=== PATIENT | male | born 2000 | race Caucasian/White ===

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

== ENCOUNTER 2024-07-08 14:23 | Inpatient (IN) ==
[2024-07-08 15:27] LABS: ABS Basophils 0.1 10^3/uL (0.0-0.1); ABS Eosinophils 0.1 10^3/uL (0.0-0.5); ABS Lymphocytes 1.9 10^3/uL (1.0-4.8); ABS Monocytes 0.3 10^3/uL (0.0-1.1); ABS Neutrophils 4.8 10^3/uL (1.5-7.6); Eosinophil % 1.9 %; Hematocrit 45.7 % (38-53); Hemoglobin 15.9 g/dL (13.2-16.3); Lymphocyte % 26.6 %; Mean Corpuscular Hemoglobin 32.1 pg (27-33); Mean Corpuscular Hgb Conc 34.7 g/dL (31-36); Mean Corpuscular Volume 92.6 fL (80-97); Mean Platelet Volume 8.5 fL (7.5-11.2); Nucleated Red Blood Cells % 0.1 %/100WBC (0.0-0.8); Platelet Count 250 10^3/uL (150-450); Red Blood Count 4.93 10^6/uL (4.06-5.63); Red Cell Distribution Width 12.7 % (12-17); White Blood Count 7.3 10^3/uL (3.6-10.2)
[2024-07-08 15:51] LABS: Urine Appearance Clear; Urine Benzodiazepine Screen None Detected (None Detect); Urine Bilirubin Negative (Negative); Urine Blood Negative (Negative); Urine Cannabinoids Screen None Detected (None Detect); Urine Color Light-Yellow; Urine Glucose Negative (Negative); Urine Ketones Negative (Negative); Urine Nitrite Negative (Negative); Urine Opiates Screen None Detected (None Detect); Urine Protein Negative (Negative); Urine Specific Gravity 1.016 (1.002-1.030); Urine Urobilinogen Negative (Negative)
[2024-07-08 16:11] LABS: ALT 18 U/L (7-52); AST 16 U/L (13-39); Acetaminophen < 15 mcg/mL; Albumin 4.7 g/dL (3.2-5.2); Albumin/Globulin Ratio 1.7 (1-3); Alcohol, S < 13 mg/dL (<13); Alkaline Phosphatase 50 U/L (35-149); Anion Gap 5 mmol/L (2-16); Blood Urea Nitrogen 14 mg/dL (6-24); CO2 Carbon Dioxide 31 mmol/L (22-32); Calcium 9.9 mg/dL (8.6-10.3); Chloride 103 mmol/L (101-111); Creatinine, Serum 0.97 mg/dL (0.67-1.17); Globulin 2.7 g/dL (2-4); Glucose 87 mg/dL (70-100); Potassium 4.5 mmol/L (3.5-5.0); Salicylate < 2.50 mg/dL (<30); Sodium 139 mmol/L (135-145); Total Bilirubin 0.4 mg/dL (0.2-1.0); Total Protein 7.4 g/dL (6.4-8.9); eGFR CKD-EPI 112.5 (>60)
[2024-07-08 16:26] LABS: TSH Ultra Thyroid Stim Horm 1.02 mcIU/mL (0.34-5.60)
[2024-07-11] MEDS ORDERED: Al Hydrox/Mg Hydrox/Simet LIQ 30 ML UDC PO PRN (10:24)
[2024-07-12 08:17] LABS: HDL Cholesterol 52.8 mg/dL
[2024-07-12] MEDS ORDERED: OLANZapine 5 mg TAB *ODT PO PRN (14:57)
[2024-07-14] MEDS: Lithium Carbonate ER 450mg TAB PO SCH (19:55)
[2024-07-20 08:53] VITALS: BP 145/81
== END 2024-07-20 18:25 | disposition home or self-care (01) | DRG 753 ==
LOC: ED 14:23 → EDHOLD 07-11 10:24 → BSU 07-11 14:19
PROVIDERS: ADMIT Psychiatry & Neurology Psychiatry; ATTEND Psychiatry & Neurology Psychiatry